=== PATIENT | male | born 1995 | race Caucasian/White ===

== ENCOUNTER 2017-04-26 13:57 | Emergency (ER) | payer MEDICAID | END 2017-04-26 17:00 | disposition home or self-care (01) | LOC: D.ER 13:57 | DX: E86.0 Dehydration (principal); Z76.5 Malingerer [conscious simulation] ==

== ENCOUNTER 2019-07-22 14:41 | Emergency (ER) | payer SELFPAY ==
[~2019-07-22] VITALS: Ht 190.5 cm; Wt 69.1 kg
[2019-07-22 15:04] VITALS: Ht 190.5 cm; Wt 69.1 kg
--- NOTE | 2019-07-22 15:13 | NUR ---
DR OAKES NOTIFED AND REVIEWED PT'S BEHAVIOR AND ASSESSMENT. PATIENT IS A FLORENCIA RISK. SITTER ORDERED AND AT BEDSIDE. RESOURCES GIVEN. PATIENT REFUSES TO COMPLETE SAFETY PLAN.
[2019-07-22] MEDS ORDERED: VOLTAREN75 MG PO (15:27)
[2019-07-22] MEDS ORDERED: ZANAFLEX4 MG PO (15:27)
[2019-07-22 16:10] VITALS: BP 135/77
== END 2019-07-22 16:10 | disposition home or self-care (01) ==
LOC: D.ER 14:41
DX: M54.5 Low back pain (principal); V49.9XXA Car occupant (driver) (passenger) injured in unspecified traffic accident, initial encounter; M62.838 Other muscle spasm

== ENCOUNTER 2019-08-25 16:54 | Emergency (ER) | payer SELFPAY ==
[~2019-08-25] VITALS: Ht 190.5 cm; Wt 67.3 kg
[~2019-08-25 16:54] MED LIST: VOLTAREN75 MG PO; ZANAFLEX4 MG PO
[2019-08-25 17:22] VITALS: BP 130/69; Ht 190.5 cm; Wt 67.3 kg
[2019-08-25] MEDS ORDERED: CEPHALEXIN250 MG/5 M PO (17:52)
== END 2019-08-25 18:04 | disposition home or self-care (01) ==
LOC: D.ER 16:54
DX: M27.2 Inflammatory conditions of jaws (principal)